=== PATIENT | female | born 1965 | race Caucasian/White ===

== ENCOUNTER 2025-03-21 09:43 | Emergency (ER) | payer BC, SELFPAY ==
--- OUTSIDE RECORDS SUMMARY | 2025-03-21 09:46 | XMS_ITS | Clinical Summary ---
Author Organization [place] Address [address] [facility] [place] [address] Care Team Providers Care Chip Mixer Name Role Phone Negar, [facility] Primary Care Provider Allergies No known active allergies Medications HYDROcodone-ventura taminophen (NORCO) 5-325 MG per tablet Take 1 tablet by mouth every 6 hours as needed for moderate to severe pain Active ferrous sulfate 325 (65 FE) MG tabletIndicatio ns:Anemia due to blood loss, acute Take 1 tablet (325 mg) by mouth daily (with breakfast) 30 tablet 2 4 Active COMPRESSION STOCKINGSIndica tions:S/P knee replacement, bilateral 1 each continuous 1 each 0 4 Active oxyCODONE (OXY-IR) 5 MG capsuleIndicati ons:S/P knee replacement, bilateral 2 tabs every 4 hours as needed for pain. 60 capsule 0 4 Active Active Problems Problem Noted Date Diagnosed Date Degenerative arthritis of knee 10/15/2013 Family History Medical History Relation Comments Cancer Father colon Cancer Maternal Grandmother colon C.A.D. 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 Not on file Not on file Not on rizwan e Last Filed Vital Signs Vital Sign Reading Time Taken Comments Blood Pressure 125/72 10/19/2013 7:24 AM CDT Pulse 83 10/16/2013 4:00 AM CDT Temperature 37.2 C (98.9 F) 10/19/2013 7:24 AM CDT Respiratory Rate 18 10/19/2013 7:24 AM CDT Oxygen Saturation 94% 10/19/2013 7:24 AM CDT Inhaled Oxygen Concentration - - Weight 96.8 kg (213 lb 4.8 oz) 10/15/2013 2:57 P M CDT Height 165.1 cm (5' 5) 10/15/2013 2:57 PM CDT Body Mass Index 35.49 10/15/2013 2:57 PM CDT Plan of Treatment Not on file Medical Devices Implanted Type Area Wood Window And Door Craftsman Device Identifier Shelf Expiration Date Model / Serial / Lot Imp Insert Tibial Howm Tri 3x09mm 5530-G-309 Implanted:Qty: 1 on 10/15/2013 by Israel Toledo MD at [facility] Right: Knee [employer] 08/27/2018 5530-G-309 / / [id number] Imp Comp Patella Strk Triathln Tri Bd W/Pa 32mm 5554-L-320 Implanted:Qty: 1 on 10/15/2013 by Israel Toledo MD at [facility] Right: Knee [employer] 08/27/2018 5554-L-320 / / [id number] Tibial Component Implanted:Qty: 1 on 10/15/2013 by Israel Toledo MD at [facility] Right: Knee [employer] 07/27/2018 5536-B-300 / / [id number] Imp Comp Fem Strk Triathln Cr Bd W/Pa Rt 4 [id number]-F-[id number] Implanted:Qty: 1 on 10/15/2013 by Israel Toledo MD at [facility] Right: Knee [employer] 04/28/2018 5517-F-402 / / [id number] Imp Insert Tibial Howm Tri 3x09mm 5530-G-309 Implanted:Qty: 1 on 10/15/2013 by Israel Toledo MD at [facility] Left: Knee [employer] 01/27/2018 5530-G-309 / / [id number] Imp Comp Patella Strk Triathln Tri Bd W/Pa 32mm 5554-L-320 Implanted:Qty: 1 on 10/15/2013 by Israel Toledo MD at [facility] Left: Knee [employer] 08/27/2018 5554-L-320 / / [id number] Tibial Component Implanted:Qty: 1 on 10/15/2013 by Israel Toledo MD at [facility] Left: Knee [employer] 06/29/2018 5536-B-300 / / [id number] Imp Comp Fem Strk Triathln Cr Bd W/Pa Lt 4 [id number]-F-[id number] Implanted:Qty: 1 on 10/15/2013 by Israel Toledo MD at [facility] Left: Knee [employer] 07/27/2018 5517-F-401 / / [id number] Insurance [facility] Advance Directives For more information, please contact: [phone] Documents on File Type Date Recorded Patient Scrap Carrier Expl anation Advance Directives and Living Will 10/23/2013 LIVING WILL 08-23-19 12 * Full Code (Latest Code Status on File) Date Activated Date Inactivated Comments 10/15/2013 9:22 PM 10/19/2013 2:17 PM Care Teams Chip Mixer Relationship Specialty Start Date End Date [facility], [place] [id number] PCP - General 09/13/13
--- OUTSIDE RECORDS SUMMARY | 2025-03-21 09:46 | XMS_ITS | Clinical Summary ---
Author Organization [facility] Address [address] [place] [address] Care Team Providers Care Blood And Plasma Laboratory Assistant Name Role Phone Anay Chatterjee MD Primary Care Provider [phone] Source Comments You are receiving this document as you are listed as the primary care provider,follow-up provider, or the patient has been referred to you for consultation.This is in compliance with the Medicare andMedicaid EHR Incentive Program,which states Providers who transition their patient to another setting of careor provider of care or refers their patient to another provider of care shouldprovide summary care record for each transition of care or referral. [employer] Allergies No known active allergies Medications aspirin EC 81 MG enteric coated tablet Take 1 Tablet (81 mg) by mouth daily. Active Pseudoephedrine- DM-GG (ROBITUSSIN CF OR) Active Active Problems Problem Noted Date Diagnosed Date Primary osteoarthritis of fi rst carpometacarpal joint of left hand 02/10/2023 Social History Tobacco Use Types Packs/Day Years Used Date Smoking Tobacco: Former Cigarettes Tobacco Cessation:Counseling Given: Not Answered Comments Unknown Sex and Gender Information Value Date Recorded Sex Assigned at Not on file Legal Sex Female 8:49 AM CDT Gender Identity Not on file Sexual Orientation Not on file Last Filed Vital Signs Vital Sign Reading Time Taken Comments Blood Pressure - - Pulse - - Temperature - - Respiratory Rate - - Oxygen Saturation - - Inhaled Oxygen Concentration - - Weight 79.4 kg (175 lb) 02/10/2023 8:23 AM CDT Height 165.1 cm (5' 5) 02/10/2023 8:23 AM CDT Body Mass Index 29.12 02/10/2023 8:23 AM CDT Plan of Treatment Health Maintenance Due Date Last Done Comments Cervical Cancer Screening Due 1965 Colon Cancer Screening Plan Due 1963 Hep C Screening (Preventive Services) 1963 HIV Screening (Preventive Services) 1979 Adult Preventive Visit 1981 Cholesterol 2008 Zoster/Shingles Vaccine (1 of 2) 2013 Mammogram 09/29/2023 09/28/2022, 06/04/2020 COVID-19 Vaccine ( season) 2025 05/10/2022, 05/07/2021, 09/16/2020, Additional history exists Influenza Vaccine (#1) 2025 , 02/14/2021, 04/03/2020, Additional history exists DTaP/Tdap/Td Vaccine (3 - Tdap) 02/26/2025 02/26/2015, 10/12/2004 RSV Vaccine (1 - 1-dose 75+ series) 2038 Pneumococcal Vaccine 50+ Yrs Completed 09/28/2022 HepA Vaccine Aged Out No longer eligi ble based on patient's age to complete this topic HepB Vaccine Aged Out No longer eligi ble based on patient's age to complete this topic Hib Vaccine Aged Out No longer eligi ble based on patient's age to complete this topic IPV (Polio) Vaccine Aged Out No longe r eligible based on patient's age to complete this topic MCV4 Vaccine Aged Out No longer eligi ble based on patient's age to complete this topic Meningococcal B Vaccine Aged Out No l onger eligible based on patient's age to complete this topic Insurance [address] [place] [id number] [facility] [place] [id number] Care Teams Blood And Plasma Laboratory Assistant Relationship Specialty Start Date End Date Anay Chatterjee MD [address] [place] [address] PCP - General Family Practice 01/19/23
--- OUTSIDE RECORDS SUMMARY | 2025-03-21 09:46 | XMS_ITS | Encounter Summary ---
Author Organization [place] Address [address] [facility] [place] [address] Care Team Providers Care Dance Instructor Name Role Phone [facility] Primary Care Provider Encounter Details Date Type Department Care Team (Late st Contact Info) Description 08/09/2013 Orders Only [facility] [address] [place] [phone] Israel Toledo MD [facility] [address] [place] [phone] Preoperative examination, unspecified (Primary Dx) Social History Tobacco Use Types Packs/Day Years Used Date Smoking Tobacco: Never Assessed Comments No Sex and Gender Information Value Date Recorded Sex Assigned at Not on file Legal Sex Female 10:01 AM CDT Gender Identity Not on file Sexual Orientation Not on file documented as of this encounter Plan of Treatment Not on file documented as of this encounter Visit Diagnoses Diagnosis Preoperative examination, unspecified- Primary documented in this encounter Care Teams Dance Instructor Relationship Specialty Start Date End Date [facility], [facility] [address] [place] [address] PCP - General 09/13/13 documented as of this encounter
--- OUTSIDE RECORDS SUMMARY | 2025-03-21 09:46 | XMS_ITS | Encounter Summary ---
Author Organization [place] Address [address] [facility] [place] [address] Care Team Providers Care Health Inspector Food Name Role Phone [facility] Primary Care Provider Encounter Details Date Type Department Care Team (Late st Contact Info) Description 09/17/2013 Orders Only [facility] [address] [place] [phone] Israel Toledo MD [facility] [address] [place] [phone] Preoperative examination, unspecified (Primary Dx) Social History Tobacco Use Types Packs/Day Years Used Date Smoking Tobacco: Every Day Cigarettes Smokeless Tobacco: Never Alcohol Use Standard Drinks/Week Comments Yes 0 [...] Primary documented in this encounter Care Teams Health Inspector Food Relationship Specialty Start Date End Date [facility], [address] [address] PCP - General 09/13/13 documented as of this encounter
--- OUTSIDE RECORDS SUMMARY | 2025-03-21 09:46 | XMS_ITS | Clinical Summary ---
Author Organization [facility] Address [address] [place] [address] Care Team Providers Care Diamond Powder Mixer Name Role Phone Anay Chatterjee MD Primary Care Provider [phone] Brigitte Duenas Unavailable [phone] Allergies No known active allergies Medications LORazepam (ATIVAN) 0.5 mg tabIndications:Grie f Take 1 Tablet (0.5 mg) by mouth at bedtime if needed for Anxiety. 4 Tablet 10/05/19 24 Active nitrofurantoin macrocrystaL 50 mg capsuleIndications: Recurrent UTI (urinary tract infection) Take 1 Capsule (50 mg) by mouth once daily. Start after completing 5 days course of Nitrofurantoin 30 Capsule 12/18/19 25 Active albuterol HFA (ProAir HFA) 90 mcg/actuation inhalerIndications: Mild intermittent asthma without complication (HC) Inhale 2 Puffs by mouth every 4 hours if needed for Shortness Of Breath or Wheezing. 18 g 3 01/16/20 25 Active aspirin enteric coated 81 mg tabletIndications:C oronary arteriosclerosis due to lipid rich plaque Take 1 Tablet (81 mg) by mouth once daily. Take 1 tablet daily 90 Tablet 3 01/16/20 25 Active rosuvastatin (CRESTOR) 20 mg tabletIndications:H yperlipidemia, unspecified hyperlipidemia type Take 1 Tablet (20 mg) by mouth at bedtime. 90 Tablet 3 01/16/20 25 Active triamcinolone 0.1 % lotionIndications:D ry skin dermatitis Apply topically to affected area(s) two times daily. 60 mL 01/16/20 25 Active lisinopriL (PRINIVIL; ZESTRIL) 10 mg tabletIndications:H TN (hypertension) Take 1 Tablet (10 mg) by mouth once daily. 90 Tablet 01/16/20 25 Active estradioL (ESTRACE) 0.01% (0.1 mg/g) vaginal creamIndications:Va ginal atrophy Insert 1 g into the vagina once weekly. 42.5 g 3 01/16/20 25 Active Additional Information Patient not taking.Reason: See Comment (Patient hasn't started yet.), Reported on 03/06/2025 cyanocobalamin (Vitamin B-12) 1,000 mcg tabletIndications:V itamin B12 deficiency Take 1 Tablet (1,000 mcg) by mouth once daily. 90 Tablet 3 01/17/20 Active Active Problems Problem Noted Date Diagnosed Date Prediabetes 01/16/2025 Vitamin B12 deficiency 01/16/2025 PSVT (paroxysmal supraventricular tachycardia) 0 10/05/2023 Paroxysmal SVT (supraventricular tachycardia) Left elbow pain 09/24/2021 Dizziness 09/24/2021 Insomnia due to psychological stress 09/24/2021 Seborrheic keratoses 09/24/2021 Arthralgia of both knees 09/24/2021 Coronary arteriosclerosis due to lipid rich plaq ue 09/24/2021 Menopause 06/04/2020 Night sweats 06/04/2020 Palpitations 06/04/2020 Mild intermittent asthma without complication H/O cold sores 06/04/2020 Seborrheic keratosis 06/04/2020 Insomnia, idiopathic 06/04/2020 Anxiety 03/30/2018 Oral herpes 07/05/2016 Routine adult health maintenance 04/02/2015 Overview (04/02/2015): Colonoscopy 03/2015 normal repeat in 10 years S/P knee replacement 03/05/2014 Tear of meniscus of left knee 05/02/2013 Overview (05/02/2013): Old injury, resulting in chronic knee pain Vitamin D deficiency 08/22/2012 Resolved Problems Problem Noted Date Diagnosed Date Resolved Date Knee pain - possible medial meniscus tear 10/27/2011 10/29/2011 Encounters Date Type Department Care Team Description 03/21/2025 Nurse Triage [facility] [address] [place] [address] Anay Chatterjee MD Abdominal Pain/problem 03/21/2025 Telephone [facility] [address] [place] [address] Anay Chatterjee MD Questions 03/21/2025 Telephone [facility] [address] [place] [address] Anay Chatterjee MD Questions 03/06/2025 8:30 AM CDT Office Visit [address] [address] Brigitte Duenas PA Consult (Recurrent UTI (urinary tract infection) /REFERRED BY: DR CHATTERJEE /) 03/06/2025 Travel 03/01/2025 Travel 02/23/2025 Travel 02/06/2025 3:45 PM CDT Orders Only [address] [address] <No scans attached> 02/06/2025 8:00 AM CDT Nurse/Clinic Staff Only [address] [address] Immunization/Injecti on; Blood Pressure 02/06/2025 Travel 02/06/[address] [address] [facility] Blood Pressure 02/05/2025 Telephone [facility] [address] [place] [address] Anay Chatterjee MD Appointment 02/05/2025 Travel 01/15/2025 9:00 AM CDT Ancillary Procedure [facility] [address] [place] [address] 01/15/2025 8:20 AM CDT Office Visit [facility] [address] [place] [address] Anay Chatterjee MD Physical (59 year old) 01/15/2025 Travel 01/10/2025 Travel 12/25/2024 Refill [facility] [address] [place] [address] Anay Chatterjee MD Refill Request; ASPIRIN 12/21/2024 Refill [facility] [address] [place] [address] Anay Chatterjee MD Refill Request; ROSUVASTATIN from Last 3 Months Immunizations Immunization Administration Dates Next Due COVID-19 vaccine (Moderna 100mcg/0.5mL) PF, MDV 05/07/2021 COVID-19 vaccine (Moderna 50 mcg/0.5mL) 12YO+ BIVALENT PF, MDV 05/10/2022 COVID-19 vaccine (MedAlliance NTech 30mcg/0.3mL) PF, MDV 09/16/2020,08/26/2020 INFLUENZA, IIV3 PF (AGE >= 6 MO) 03/05/2024 Influenza, IIV3 (Age >=3 years) 02/14/2021,07/14,03/10/2010 Influenza, IIV4 05/10/2022, 0,03/09/2019,02/26,02/20/2014 Influenza,CCIIV4 PRESERV FREE 03/16/2023 Pneumococcal Conj 20-valent (Prevnar 20) 09/28/2022 RSV, Recombinant ADJ Reconst ituted (Arexvy 120MCG/0.5mL) 02/06/2025 Td, Preservative Free (age >= 7 Years) 5 Tdap 10/12/2004 Family History Medical History Relation Name Comments Cancer-colon Brother non cancerous p olyps, 54 yr Cancer-colon Father diagnosed age 8 1 Cancer-colon Maternal Grandmother Good Health Mother Heart Disease Mother Triple Bypass in 70s Cancer-breast No Family History Cancer-ovarian No Family History Relation Name Status Comments Brother Father Maternal Grandmother Mother Other (Age 51) lung cance r, previous spouse Social History Tobacco Use Types Packs/Day Years Used Date Smoking Tobacco: Former Cigarettes 0.3 10 0 08/08/2010 - 08/08/2020 Smokeless Tobacco: Never Tobacco Cessation:Counseling Given: Yes Alcohol Use Standard Drinks/Week Comments Yes 6 (1 standard drink = 0.6 oz pure alcohol) 2-3 glasses of wine, 2 nights per week PHQ-2 Answer Date Recorded PHQ-2 TOTAL SCORE 0 01/15/2025 Social Connections Answer Date Recorded Do you often feel lonely or isolated from those around you? 0 01/10/2025 Alcohol Use Answer Date Recorded How often do you have a drink containing alcohol ? 3 03/06/2025 How many drinks containing a lcohol do you have on a typical day when you are drinking? 0 03/06/2025 How often do you have five or more drinks on one occasion? 0 03/06/2025 Financial Resource Strain Answer Date R ecorded Difficulty of Paying Living Expenses 3 01/10/2025 Difficulty of Paying Living Expenses Not on file 01/10/2025 Food Insecurity Answer Date Recorded Do you worry your food will run out before you are able to buy more? 1 01/10/2025 Transportation Needs Answer Date Record ed Does lack of transportation keep you from medica l appointments? 1 01/10/2025 Does lack of transportation keep you from work, meetings or getting things that you need? 1 01/10/2025 Housing Stability Answer Date Recorded What is your housing situation today? 1 01/10/2025 Utilities Answer Date Recorded Do you have trouble paying f or utilities (for example, heat, electricity, water, phone)? 1 01/10/2025 Comments No Sex and Gender Information Value Date Recorded Sex Assigned at Not on file Legal Sex Female 5:26 AM BRIDGE EXPERT Gender Identity Not on file Sexual Orientation Not on file Occupation Industry Job Start Date Job End Date Not on file Not on file Not on file Not on file Obstetrics History Para Term AB IAB SAB Ectopic Multiple Livin g Live Births 2 2 Date Outcome GA Total Labor Labor/2nd/3rd Weight Sex Type Anes PTL Gloria A1 A5 Name Clin Last Filed Vital Signs Vital Sign Reading Time Taken Comments Blood Pressure 112/68 03/06/2025 8:16 AM CDT Pulse 84 03/06/2025 8:16 AM CDT Temperature 36.6 C (97.9 F) 12/17/2024 8:16 AM CDT Respiratory Rate - - Oxygen Saturation 98% 01/15/2025 8:25 AM CDT Inhaled Oxygen Concentration - - Weight 93.6 kg (206 lb 4.8 oz) 03/06/2025 8:16 A M CDT Height 164 cm (5' 4.57) 01/15/2025 8:25 AM CDT Body Mass Index 34.79 01/15/2025 8:25 AM CDT Plan of Treatment Upcoming Encounters Date Type Department Care Team (Late st Contact Info) Description 04/11/2025 11:20 AM BRIDGE EXPERT Office Visit [facility] [address] [place] [phone] Ag [employer] [address] [place] [address] 09/04/2025 8:00 AM CDT Office Visit [facility] [address] [place] [address] Brigitte Duenas PA [address] [place] [address] Health Maintenance Due Date Last Done Comments Zoster (shingles) series for age 50+ (1 of 2) 2013 COVID-19 vaccine series ( season) 2025 03/16/2023, 05/10/2022, 05/07/2021, Additional history exists Influenza Vaccine (#1) 2025 4, 03/16/2023, 05/10/2022, Additional history exists Tetanus booster 02/26/2025 02/26/2015, 10/12/2004 Pap test for age 21-65 06/04/2025 1, 06/04/2020, 09/22/2016, Additional history exists BMI (ht and wt on same day) for age 18+ 01/15/2026 01/15/2025, 10/05/2023, 09/28/2022, Additional history exists Depression screening for age 12+ 01/15/2026 01/15/2025, 10/05/2023, 09/28/2022, Additional history exists Mammogram for age 45-75 01/15/2026 01/16/20 25, 10/19/2023, 09/28/2022, Additional history exists Colonoscopy through age 75 08/05/202908/05, 08/06/2019, 04/02/2015, Additional history exists Lipids for age 45-75 01/15/2030 01/15/2025, 10/05/2023, 09/28/2022, Additional history exists Hepatitis C screening for age 18-79 Completed 02/20/2014 HIV for age 15-65 Completed 09/28/2022 Pneumococcal series for age 50+ Completed 09/28/2022 RSV vaccine for adults or Completed 02/06/2025 Hepatitis B series for 19+ Aged Out N o longer eligible based on patient's age to complete this topic Procedures Procedure Name Priority Date/Time Associated Diagnosis Comments BASIC METABOLIC PANEL Routine 02/06/2025 3:30 PM CDT HTN (hypertension) VITAMIN B12 Routine 01/15/2025 9:30 AM CDT Paresthesia of bilateral legs CBC W PLT NO DIFF Routine 01/15/2025 9:3 0 AM CDT Paresthesia of bilateral legs PHOSPHORUS Routine 01/15/2025 9:30 AM CDT Paresthesia of bilateral legs MAGNESIUM Routine 01/15/2025 9:30 AM CDT Paresthesia of bilateral legs FOLIC ACID Routine 01/15/2025 9:30 AM CDT Paresthesia of bilateral legs TSH Routine 01/15/2025 9:30 AM CDT Paresthesia of bilateral legs LDL CHOLESTEROL,DIRECT Routine 01/15/2025 9:30 AM CDT Hyperlipidemia, unspecified hyperlipidemia type COMP METABOLIC PANEL Routine 01/15/2025 9:30 AM CDT Hyperlipidemia, unspecified hyperlipidemia type HEMOGLOBIN A1C Routine 01/15/2025 9:30 AM CDT Diabetes mellitus screening XR MAMMO BETTY BILAT SCREEN Routine 01/15/2025 9:18 AM CDT Visit for screening mammogram LC HIV-1/O/2, 4TH GENERATION Routine 09/28/2022 11:20 AM CDT Screening for HIV (human immunodeficiency virus) TILE CLASSIFIER THIN PREP PAP SCREEN IMAGED Routine 06/04/2020 8:12 AM BRIDGE EXPERT Screening for malignant neoplasm of cervix COLONOSCOPY DIAGNOSTIC Routine 08/06/2019 10:57 AM CDT Chronic diarrhea ANTI HCV Routine 02/20/2014 9:30 AM CDT Need for hepatitis C screening test from Last 3 Months or Most Recently Relevant to Health Maintenance Results * BASIC METABOLIC PANEL (02/06/2025 3:30 PM CDT) SODIUM 140 135 - 146 mmol/L 02/07/2025 5:10 AM CDT [facility] POTASSIUM 4.1 3.5 - 5.3 mmol/L 02/07/2025 5:10 AM CDT [facility] CARBON DIOXIDE 26 20 - 32 mmol/L 02/07/2025 5:10 AM CDT [facility] GLUCOSE 87 65 - 99 mg/dL 02/07/2025 5:10 AM CDT [facility] Comment: Fasting reference interval CALCIUM 9.3 8.6 - 10.4 mg/dL 02/07/2025 5:10 AM CDT [facility] CREATININE 0.76 0.50 - 1.05 mg/dL 02/07/2025 5:10 AM CDT [facility] BUN/CREATININE RATIO SEE NOTE: 6 - 22 (calc) 02/07/2025 5:10 AM CDT [facility] Comment: Not Reported: BUN and Creatinine are within reference range. EGFR 89 > OR = 60 mL/min/1. 73m2 02/07/2025 5:10 AM CDT [facility] UREA NITROGEN (BUN) 18 7 - 25 mg/dL 02/07/2025 5:10 AM CDT [facility] ELECTROLYTE BALANCE 8 7 - 17 mmol/L (calc) 02/07/2025 5:10 AM CDT [facility] CHLORIDE 106 98 - 110 mmol/L 02/07/2025 5:10 AM CDT [facility] Blood BLOOD SPECIMEN / Unknown [facility] / Unknown 02/06/2025 3:30 PM CDT 02/06/2025 3:30 PM CDT Anay Chatterjee MD CHEMISTRY Final Resul t Performing Organization Address [facility] Co de Phone Number [facility] [address] [address], * (ABNORMAL) HEMOGLOBIN A1C (01/15/2025 9:30 AM CDT) HEMOGLOBIN A1C 5.9(H) <5.7 % 01/16/2025 4:54 AM CDT [facility] Comment: For someone without known diabetes, a hemoglobin A1c value between 5.7% and 6.4% is consistent with prediabetes and should be confirmed with a follow-up test. For someone with known diabetes, a value <7% indicates that their diabetes is well controlled. A1c targets should be individualized based on duration of diabetes, age, comorbid conditions, and other considerations. This assay result is consistent with an increased risk of diabetes. Currently, no consensus exists regarding use of hemoglobin A1c for diagnosis of diabetes for children. Blood BLOOD SPECIMEN / Unknown [facility] / Unknown 01/15/2025 9:30 AM CDT 01/15/2025 9:31 AM CDT Anay Chatterjee MD CHEMISTRY Final Resul t Performing Organization Address [facility] Co de Phone Number [facility] [address] [address], * TSH (01/15/2025 9:30 AM CDT) TSH 0.99 0.40 - 4.50 mIU/L 01/16/2025 6:18 AM CDT [facility] Blood BLOOD SPECIMEN / Unknown [facility] / Unknown 01/15/2025 9:30 AM CDT 01/15/2025 9:30 AM CDT us Anay Chatterjee MD CHEMISTRY Final Resul t [facility] [address] [place] [address], [place] [phone] * CBC W PLT NO DIFF (01/15/2025 9:30 AM CDT) Pathologist [facility] WHITE BLOOD CELL COUNT 5.8 3.8 - 10.8 Thousand/u L 01/16/2025 2:51 AM CDT [facility] RED BLOOD CELL COUNT 4.40 3.80 - 5.10 Million/uL 01/16/2025 2:51 AM CDT [facility] HEMOGLOBIN 13.7 11.7 - 15.5 g/dL 01/16/2025 2:51 AM CDT [facility] HEMATOCRIT 42.5 35.0 - 45.0 % 01/16/2025 2:51 AM CDT [facility] MCV 96.6 80.0 - 100.0 fL 01/16/2025 2:51 AM CDT [facility] MCH 31.1 27.0 - 33.0 pg 01/16/2025 2:51 AM CDT [facility] MCHC 32.2 32.0 - 36.0 g/dL 01/16/2025 2:51 AM CDT [facility] Comment: For adults, a slight decrease in the calculated MCHC value (in the range of 30 to 32 g/dL) is most likely not clinically significant; however, it should be interpreted with caution in correlation with other red cell parameters and the patient's clinical condition. RDW 11.9 11.0 - 15.0 % 01/16/2025 2:51 AM CDT [facility] PLATELET COUNT 257 140 - 400 Thousand/u L 01/16/2025 2:51 AM CDT [facility] MPV 10.3 7.5 - 12.5 fL 01/16/2025 2:51 AM CDT [facility] Blood BLOOD SPECIMEN / Unknown [facility] / Unknown 01/15/2025 9:30 AM CDT 01/15/2025 9:31 AM CDT Anay Chatterjee MD HEMATOLOGY Final Resul t Performing Organization Address [facility]/ZIP Co de Phone Number [facility] [address] [address], [place] [phone] * PHOSPHATE (01/15/2025 9:30 AM CDT) PHOSPHATE ( PHOSPHORUS) 3.8 2.5 - 4.5 mg/dL 01/16/2025 5:32 AM CDT [facility] Blood BLOOD SPECIMEN / Unknown [facility] / Unknown 01/15/2025 9:30 AM CDT 01/15/2025 9:31 AM CDT Anay Chatterjee MD CHEMISTRY Final Resul t Performing Organization Address [facility] Co de Phone Number [facility] [address] [address], [place] [phone] * MAGNESIUM (01/15/2025 9:30 AM CDT) MAGNESIUM 2.3 1.5 - 2.5 mg/dL 01/16/2025 5:32 AM CDT [facility] Blood BLOOD SPECIMEN / Unknown [facility] / Unknown 01/15/2025 9:30 AM CDT 01/15/2025 9:31 AM CDT Anay Chatterjee MD CHEMISTRY Final Resul t Performing Organization Address [facility] Co de Phone Number [facility] [address] [address], [place] [phone] * LDL CHOLESTEROL,DIRECT (01/15/2025 9:30 AM CDT) DIRECT LDL 66 <100 mg/dL 01/17/2025 3:14 AM CDT [facility] Comment: Desirable range <100 mg/dL for primary prevention; <70 mg/dL for patients with CHD or diabetic patients with > or = 2 CHD risk factors. Blood BLOOD SPECIMEN / Unknown [facility] / Unknown 01/15/2025 9:30 AM CDT 01/15/2025 9:31 AM CDT Anay Chatterjee MD CHEMISTRY Final Resul t Performing Organization Address [facility] [[email or web address]] de Phone Number [facility] [address] [address], * FOLIC ACID (01/15/2025 9:30 AM CDT) Pathologist [facility] FOLATE, SERUM 14.0 ng/mL 01/16/2025 6:18 AM CDT [facility] Comment: Reference Range Low: <3.4 Borderline: 3.4-5.4 Normal: >5.4 Blood BLOOD SPECIMEN / Unknown [facility] / Unknown 01/15/2025 9:30 AM CDT 01/15/2025 9:30 AM CDT Anay Chatterjee MD CHEMISTRY Final Resul t Performing Organization Address [facility] [[email or web address]] de Phone Number [facility] [address] [address], * VITAMIN B12 (01/15/2025 9:30 AM CDT) Pathologist [facility] VITAMIN B12 258 200 - 1100 pg/mL 01/16/2025 6:18 AM CDT [facility] Comment: Please Note: Although the reference range for vitamin B12 is 200-1100 pg/mL, it has been reported that between 5 and 10% of patients with values between 200 and 400 pg/mL may experience neuropsychiatric and hematologic abnormalities due to occult B12 deficiency; less than 1% of patients with values above 400 pg/mL will have symptoms. Blood BLOOD SPECIMEN / Unknown [facility] / Unknown 01/15/2025 9:30 AM CDT 01/15/2025 9:30 AM CDT us Anay Chatterjee MD CHEMISTRY Final Resul t [facility] [address] [place] [address], * COMP METABOLIC PANEL (01/15/2025 9:30 AM CDT) SODIUM 140 135 - 146 mmol/L 01/16/2025 5:32 AM CDT [facility] POTASSIUM 4.5 3.5 - 5.3 mmol/L 01/16/2025 5:32 AM CDT [facility] CHLORIDE 104 98 - 110 mmol/L 01/16/2025 5:32 AM CDT [facility] CARBON DIOXIDE 28 20 - 32 mmol/L 01/16/2025 5:32 AM CDT [facility] GLUCOSE 95 65 - 99 mg/dL 01/16/2025 5:32 AM CDT [facility] Comment: Fasting reference interval CALCIUM 9.6 8.6 - 10.4 mg/dL 01/16/2025 5:32 AM CDT [facility] CREATININE 0.75 0.50 - 1.05 mg/dL 01/16/2025 5:32 AM CDT [facility] BUN/CREATININE RATIO SEE NOTE: 6 - 22 (calc) 01/16/2025 5:32 AM CDT [facility] Comment: Not Reported: BUN and Creatinine are within reference range. EGFR 91 > OR = 60 mL/min/1. 73m2 01/16/2025 5:32 AM CDT [facility] ALBUMIN 4.9 3.6 - 5.1 g/dL 01/16/2025 5:32 AM CDT [facility] PROTEIN, TOTAL 7.0 6.1 - 8.1 g/dL 01/16/2025 5:32 AM CDT [facility] BILIRUBIN, TOTAL 0.8 0.2 - 1.2 mg/dL 01/16/2025 5:32 AM CDT [facility] ALKALINE PHOSPHATASE 81 37 - 153 U/L 01/16/2025 5:32 AM CDT [facility] ALT 26 6 - 29 U/L 01/16/2025 5:32 AM CDT [facility] AST 24 10 - 35 U/L 01/16/2025 5:32 AM CDT [facility] UREA NITROGEN (BUN) 12 7 - 25 mg/dL 01/16/2025 5:32 AM CDT [facility] GLOBULIN 2.1 1.9 - 3.7 g/dL (calc) 01/16/2025 5:32 AM CDT [facility] ALBUMIN/GLOBULI N RATIO 2.3 1.0 - 2.5 (calc) 01/16/2025 5:32 AM CDT [facility] Blood BLOOD SPECIMEN / Unknown [facility] / Unknown 01/15/2025 9:30 AM CDT 01/15/2025 9:31 AM CDT us Anay Chatterjee MD CHEMISTRY Final Resul t [facility] [address] [id number] [place] [address], * XR MAMMO BETTY BILAT SCREEN (01/15/2025 9:18 AM CDT) Anatomical Region Laterality Modality BREASTS, Breast Left, Breast Right Bilateral Mammography Impressions 01/16/2025 7:08 PM CDT There is no radiographic evidence for malignancy. Recommend annual mammograms. MAMMOGRAM ASSESSMENT: ACR 1 Negative PATIENTS: You will also receive a letter with your examination results in an easy to read format. If you have questions about your results, please contact your referring provider. Narrative 01/16/2025 7:08 PM CDT For Patients: As a result of the Century Cures Act, medical imaging exams and procedure reports are released immediately into your electronic medical record. You may view this report before your referring provider. If you have questions, please contact your health care provider. XR MAMMO BETTY BILAT SCREEN [[id number]] CLINICAL HISTORY: This is an asymptomatic 59 y.o. patient. INDICATION FOR EXAM: Mammogram Screening. TECHNIQUE: CC and MLO views were obtained. This study was evaluated with the assistance of Computer-Aided Detection. Breast Tomosynthesis was used in interpretation. COMPARISON FILM: Yes 10/19/23 [facility] 09/28/22 [facility] FINDINGS: There are scattered areas of fibroglandular density. There are no dominant masses, suspicious micro calcifications or areas of architectural distortion. us Anay Chatterjee MD MAMMO Final Resul t * LC HIV-1/O/2, 4TH GENERATION (09/28/2022 11:20 AM CDT) HIV Scr 4th Gen Non Reactive Non Reactive 09/30/2022 2:08 PM CDT [facility] ([facility]) Comment: HIV Negative HIV-1/HIV-2 antibodies and HIV-1 p24 antigen were NOT detected. There is no laboratory evidence of HIV infection. Blood BLOOD SPECIMEN / Unknown Venipuncture / Unknown 09/28/2022 11:20 AM CDT 09/28/2022 11:21 AM CDT Narrative [facility] ([facility]) - 09/30/2022 2:08 PM CDT Performed at: [address] [place] [id number] Machine Gun Mechanic: Bhupinder Alejandro MD, Phone: [phone] Anay Chatterjee MD LABORATORY Final Resul t [facility] ([facility]) [address] [place] [address], [place] * TILE CLASSIFIER THIN PREP PAP SCREEN IMAGED [[id number]] (06/04/2020 8:12 AM BRIDGE EXPERT) Case Report Gynecologic Cytology Report Case: [id number] Authorizing Provider: Anay Chatterjee MD Collected: 06/04/2020 0812 Ordering Location: [facility] Received: 06/04/2020 0859 Clinic First Screen: Gale Ledezma Specimen: TILE CLASSIFIER ThinPrep Vial Screening, Cervical 06/11/2020 1:34 PM BRIDGE EXPERT [facility] LAB[facility]-C ENTRAL LABORATORY INTERPRETATION/ RESULT NEGATIVE FOR INTRAEPITHELIAL LESION OR MALIGNANCY (NIL) (none) 06/11/2020 1:34 PM BRIDGE EXPERT [facility] ENTRMS LABORATORY at 1334 BRIDGE EXPERT SPECIMEN ADEQUACY Satisfactory for evaluation Endocervical component present 06/11/2020 1:34 PM BRIDGE EXPERT [facility] HPV REQUEST HPV and PAP 06/11/2020 1:34 PM BRIDGE EXPERT [facility] Date of LMP postmenopausal 1:34 PM BRIDGE EXPERT [facility] Last Pap Date 09/22/16 06/11/2020 1:34 PM BRIDGE EXPERT [facility] Last Pap Result NIL 1:34 PM BRIDGE EXPERT [facility] Abnormal Pap or [place] Bx in last 5 years No 06/11/2020 1:34 PM BRIDGE EXPERT [facility] Menstrual Status Postmenopausal 06/11/2020 1:34 PM BRIDGE EXPERT [facility] [place] Bx Done Today No 06/11/2020 1:34 PM BRIDGE EXPERT [facility] Additional Information None given 06/11/2020 1:34 PM BRIDGE EXPERT [facility] Comment: Cytology is screened at [facility] - [address] [facility] [address], [place] [address] and [facility] - [address] [place] [address] and [facility] - [address] [place] [address] Interpreted at [facility] - [address] [place] [address] Automated Review Successful 06/11/2020 1:34 PM BRIDGE EXPERT [facility] Comment:Specimen processed s uccessfully by automated bonding machine operator device, [employer] ANCILLARY TESTING TILE CLASSIFIER HPV Ordered, Please see separate report 06/11/2020 1:34 PM BRIDGE EXPERT [facility] Note The pap test is a screening technique, not a diagnostic procedure. It is used primarily to screen for squamous cancers and precursor lesions. Published studies have shown that it is subject to both false negative and false positive results. The pap test should not be used as the sole means to diagnose or exclude pre-malignant and malignant lesions. 06/11/2020 1:34 PM BRIDGE EXPERT [facility]AL [facility]AT[facility] Other (Cervical) Non-Blood / Unknown 06/04/2020 8:12 AM BRIDGE EXPERT 06/04/2020 8:59 AM BRIDGE EXPERT us Anay Chatterjee MD PATHOLOGY/CYTOLOGY Final Re sult Performing Organization Address City/[facility]/ZIP Co de Phone Number [facility] [address] [place] [address], * COLONOSCOPY DIAGNOSTIC (08/06/2019 10:57 AM CDT) us Israel Knowles MD GI PROCEDURE ORD Edited R esult - Final * ANTI HCV (02/20/2014 9:30 AM CDT) HEPATITIS C ANTIBODY Non-Reacti ve Non-Reacti ve 02/20/2014 4:53 PM CDT [facility] Blood specimen (specimen) BLOOD SPECIMEN / Unknown Venipuncture / Unknown 02/20/2014 9:30 AM CDT 02/20/2014 9:31 AM CDT Narrative [facility] - 02/20/2014 4:53 PM CDT Antibodies to HCV not detected; does not exclude the possibility of exposure to HCV. us Rani Griffiths NP SEND OUTS F inal Result Performing Organization Address City/[facility]/ZIP Co de Phone Number [facility] 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
[2025-03-21 09:47] VITALS: BP 167/95; PULSE 81; RESP 18; TEMP 36.4; O2SAT 98; BMI 32.4
--- NOTE | 2025-03-21 10:01 | ED.GENADULT ---
HPI - General Adult General Chief complaint: Abdominal Pain Stated complaint: Bloody stool Time Seen by Provider: 03/21/25 09:59 History of Present Illness HPI narrative: Patient presents to the emergency department complaining of abdominal cramping and blood in her stool. Patient started experiencing cramps last night and was experiencing diarrhea. Patient woke up in the middle of the night and continued to have these cramps then this morning when she was having a BM there was blood . Patient states later she passed some BM that was mostly mucus and blood. 59-year-old woman presenting to the emergency department in with concern of abdominal cramping, pretty severe pain suprapubic area as demonstrated. Began having some cramping around 7:00 p.m. last night after supper with subsequent diarrheal stool. 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 More cramping with some bloody mucus produced. Last most intense intense cramping was about 2 hours prior to presentation in the emergency department. No known hemorrhoids. No anticoagulants but does take an aspirin. No fever. No particular exposures to food or illness. She is concerned in part also is will be traveling tomorrow to [place]. Has had regular colonoscopies but does not believe that diverticulosis was ever mentioned. No recent antibiotics. Related Data Home Medications ?Medication ?Instructions ?Recorded ?Confirmed aspirin 81 mg tablet,delayed 81 mg PO DAILY 03/21/25 03/21/25 release cyanocobalamin (vitamin B-12) 1,000 mcg PO DAILY 03/21/25 03/21/25 1,000 mcg tablet estradiol 0.01% (0.1 mg/gram) 1 g vaginal 03/21/25 vaginal cream lisinopril 10 mg tablet 10 mg PO DAILY 03/21/25 03/21/25 rosuvastatin 20 mg tablet 20 mg PO QPM 03/21/25 03/21/25 Allergies Allergy/AdvReac Type Severity Reaction Status Date / Time No Known Drug Allergies Allergy Verified 03/21/25 09:52 Review of Systems Status of ROS: Reports: 6 or more systems reviewed and unremarkable except as noted in History and below [facility] Social History Smoking Status: Never smoker Do you use any of these nicotine containing products: None Second hand tobacco smoke exposure: No How often do you have a drink containing alcohol: never How often do you have six or more drinks on one occasion: Never AUDIT-C Alcohol total score: 0 Non-prescribed substance use: denies use Exam Narrative: Exam Narrative: Pleasant. NAD. Seated as if a little uncomfortable. Breathing easily. Lungs appear clear. Skin is warm and dry. No rashes apparent. Heart in regular rate and rhythm. Abdomen with present bowel sounds is soft and mildly uncomfortable to palpation in the suprapubic area. Without peritoneal signs Const: Vital Signs, click to edit/add: Vital Signs - 24 hr 03/21/25 09:47 Temperature 97.5 F L Pulse Rate [Right Pulse Oximeter] 81 Respiratory Rate 18 Blood Pressure [Ri ght Upper Arm] 167/95 H Pulse Oximetry 98 Oxygen Delivery Me thod Room Air Documenting provider has reviewed patient's vital signs: yes Course Vital Signs Vital signs: Initial Vital Signs Temperature 97.5 F L 03/21/25 09:47 Temperature Source Temporal Artery Scan 03/21/25 09:47 Pulse Rate 81 03/21/25 09:47 Pulse Rhythm Regular 03/21/25 09:47 Pulse Strength 3+ Normal 03/21/25 09:47 Respiratory Rate 18 03/21/25 09:47 Blood Pressure 167/95 H 03/21/25 09:47 Blood Pressure Mean 119 H 03/21/25 09:47 Blood Pressure Position Sitting 03/21/25 09:47 Pulse Oximetry 98 03/21/25 09:47 Oxygen Delivery Method Room Air 03/21/25 09:47 Vital Signs Temperature 97.5 F L 03/21/25 09:47 Pulse Rate 81 03/21/25 09:47 Respiratory Rate 18 03/21/25 09:47 Blood Pressure 167/95 H 03/21/25 09:47 Pulse Oximetry 98 03/21/25 09:47 Oxygen Delivery Method Room Air 03/21/25 09:47 Temperature 97.5 F L 03/21/25 09:47 Pulse Rate 81 03/21/25 09:47 Respiratory Rate 18 03/21/25 09:47 Blood Pressure 167/95 H 03/21/25 09:47 Pulse Oximetry 98 03/21/25 09:47 Oxygen Delivery Method Room Air 03/21/25 09:47 Medications Administered Medications: Discontinued Medications Generic Name Dose Route Start Last Admin Trade Name Freq PRN Reason Stop Dose Admin Sodium Chloride 1,000 mls @ 1,000 mls/hr 03/21/25 10:20 03/21/25 11:52 0.9 % Sodium Chloride 1000 Ml IV 03/21/25 11:19 Infused .Q1H ONE Infusion Medical Decision Making MDM Narrative Medical decision making narrative: I suspect colitis or enteritis; particularly the former. Possible hemorrhoidal bleeding but nothing like this prior. Diverticulitis remains in differential. Does not appear to have kind of pain might from expect bowel ischemia nor is she high risk for this. Will check standard labs. I would for this first-time occurrence do abdomen and pelvis CT imaging IV was placed. Received a L normal saline. Labs are reassuring. Normal white count. Non contrasted CT of abdomen pelvis independently reviewed by me does show some diverticulosis. I wonder if there are some inflammatory changes in the lower colon. Radiology over-read below INDICATION: Lower abdominal pain. Cramping. TECHNIQUE: CT abdomen and pelvis acquired without contrast. COMPARISON: None. FINDINGS: Lower chest: Lung bases are clear. No pleural or pericardial effusion. Coronary artery calcifications. Liver: Unremarkable. Spleen: Unremarkable. Pancreas: Unremarkable. Gallbladder and bile ducts: No calcified stones or biliary ductal dilatation. Kidneys: No urolithiasis or hydronephrosis. Bilateral unenhanced kidneys are otherwise unremarkable. Adrenal glands: Unremarkable. GI tract: Circumferential thickening of the distal descending and sigmoid colon with pericolonic stranding greatest adjacent to the sigmoid colon in the pelvis. Minimal diverticulosis is present in the sigmoid colon. No pneumatosis, free air, free fluid or drainable fluid collection. No obstruction. Normal appendix. Lymph nodes: No pathologic lymphadenopathy. Vascular structures: Atherosclerotic disease. No abdominal aortic aneurysm. Pelvic Organs: Unremarkable. Bones: No acute or suspicious osseous abnormality. Degenerative changes of the spine and pelvis. IMPRESSION: Colitis of the distal descending and sigmoid colon. No complicating features evident. Minimal sigmoid diverticulosis is present and findings may represent diverticulitis, however, other etiologies for colitis should also be considered. Dictated by Bob Zaragoza MD @ 03/21/2025 10:58:56 AM Discussed these findings of colitis with Amie and her . Symptoms have also settled somewhat. Possible diverticulitis but I think it would focus on colitis as more significant finding. Feels comfortable for departure from the emergency department See patient discharge plan for further discussion Focus on hydration. Over the next 2-3 days would go with a landcare officer diet. Start with diluted juices, soup broths, crackers, rice, toast and then advancing your diet. Take a copy of your images on this disc and report along with you on your trip in case things get worse. Can take up to 600 mg of ibuprofen or up to 850 mg of acetaminophen per dose; they can be combined. Alternative to the ibuprofen could take 375 mg of naproxen 2 times daily. Lab Data Lab results reviewed: Yes I reviewed the patient's lab results Labs: Lab Results 03/21/25 Range/Units 10:53 WBC 9.44 (4.50-11.00) K/uL RBC 4.31 (4.00-5.20) m/uL Hgb 13.4 (12.0-16.0) gm/dL Hct 40.7 (33.0-51.0) % MCV 94 (80-100) fL MCH 31 (26-34) pg MCHC 33 (32-36) gm/dL RDW Coeff of Conrad 11.8 (11.5-15.5) % Plt Count 215 (140-440) K/uL Neut % (Auto) 74.4 H (42.0-72.0) % Lymph % (Auto) 17.3 L (20-44) % [place] % (Auto) 6.6 (0.0-11.0) % Eos % (Auto) 0.7 (0.0-7.0) % Baso % (Auto) 0.3 (0.0-3.0) % Neut # (Auto) 7.00 (1.7-7.0) K/uL Lymph # (Auto) 1.60 (0.90-2.90) K/uL [place] # (Auto) 0.60 (0.00-0.90) K/UL Eos # (Auto) 0.07 (0.00-0.50) K/uL Baso # (Auto) 0.03 (0.00-0.30) K/uL Abs Immat Gran (auto) 0.07 (0.00-0.30) K/uL Imm/Tot Granulo (auto) 0.7 % Sodium 137 (135-149) mmol/L Potassium 4.2 (3.6-5.1) mmol/L Chloride 101 (96-114) mmol/L Carbon Dioxide 27 (20-32) mmol/L Anion Gap 9 (7-15) mEq/L BUN 16 (7-30) mg/dL Creatinine 0.7 (0.5-1.5) mg/dL Estimated Creat Clear 53.16 Estimated GFR 98 ml/min Glucose 112 (60-115) mg/dL Calcium 9.6 (8.4-10.6) mg/dL C-Reactive Protein < 0.5 L (0.5-1.0) mg/dL Discharge Plan Discharge Clinical Impression: Colitis Patient Disposition: Home w/ Parent or Adult Condition: Improved Additional Instructions: Focus on hydration. Over the next 2-3 days would go with a landcare officer diet. Start with diluted juices, soup broths, crackers, rice, toast and then advancing your diet. Take a copy of your images on this disc and report along with you on your trip in case things get worse. Can take up to 600 mg of ibuprofen or up to 850 mg of acetaminophen per dose; they can be combined. Alternative to the ibuprofen could take 375 mg of naproxen 2 times daily. Prescriptions: No Action cyanocobalamin (vitamin B-12) 1,000 mcg tablet 1,000 mcg PO DAILY aspirin 81 mg tablet,delayed release (DR/EC) 81 mg PO DAILY lisinopril 10 mg tablet 10 mg PO DAILY estradiol 0.01 % (0.1 mg/gram) cream 1 g vaginal rosuvastatin 20 mg tablet 20 mg PO QPM Follow Up/Referrals: Anay Chatterjee MD [Primary Care Provider, Family Practice] Stand Alone Forms: [employer] Info Instructions
--- NOTE | 2025-03-21 10:19 | CRLHL7_ITS ---
For Patients: As a result of the Century Cures Act, medical imaging exams and procedure reports are released immediately into your electronic medical record. You may view this report before your referring provider. If you have questions, please contact your health care provider. INDICATION: Lower abdominal pain. Cramping. TECHNIQUE: CT abdomen and pelvis acquired without contrast. COMPARISON: None. FINDINGS: Lower chest: Lung bases are clear. No pleural or pericardial effusion. Coronary artery calcifications. Liver: Unremarkable. Spleen: Unremarkable. Pancreas: Unremarkable. Gallbladder and bile ducts: No calcified stones or biliary ductal dilatation. Kidneys: No urolithiasis or hydronephrosis. Bilateral unenhanced kidneys are otherwise unremarkable. Adrenal glands: Unremarkable. GI tract: Circumferential thickening of the distal descending and sigmoid colon with pericolonic stranding greatest adjacent to the sigmoid colon in the pelvis. Minimal diverticulosis is present in the sigmoid colon. No pneumatosis, free air, free fluid or drainable fluid collection. No obstruction. Normal appendix. Lymph nodes: No pathologic lymphadenopathy. Vascular structures: Atherosclerotic disease. No abdominal aortic aneurysm. Pelvic Organs: Unremarkable. Bones: No acute or suspicious osseous abnormality. Degenerative changes of the spine and pelvis. IMPRESSION: Colitis of the distal descending and sigmoid colon. No complicating features evident. Minimal sigmoid diverticulosis is present and findings may represent diverticulitis, however, other etiologies for colitis should also be considered. Dictated by Bob Zaragoza MD @ 03/21/2025 10:58:56 AM Please note that all CT scans at this facility use dose modulation, iterative reconstruction, and/or weight-based dosing when appropriate to reduce radiation dose to as low as reasonably achievable. Dictated by: Bob Zaragoza MD @ 03/21/2025 10:59:13 (Electronically Signed)
[2025-03-21 11:08] LABS: Hematocrit* 40.7 % (33.0-51.0); Hemoglobin* 13.4 gm/dL (12.0-16.0); Immature Granulocytes Abs Auto 0.07 K/uL (0.00-0.30); Immature Granulocytes Pct Auto 0.7 %; Mean Corpuscular HGB Conc 33 gm/dL (32-36); Mean Corpuscular Hemoglobin 31 pg (26-34); Mean Corpuscular Volume 94 fL (80-100); RDW Coefficient of Variation % 11.8 % (11.5-15.5); Red Blood Count* 4.31 m/uL (4.00-5.20); White Blood Count* 9.44 K/uL (4.50-11.00)
[2025-03-21 11:11] LABS: Lymphocytes Absolute Auto 1.60 K/uL (0.90-2.90); Slide Review Reflex No
[2025-03-21 11:13] LABS: Chloride* 101 mmol/L (96-114); Sodium* 137 mmol/L (135-149)
[2025-03-21 11:14] LABS: Potassium* 4.2 mmol/L (3.6-5.1)
[2025-03-21 11:17] LABS: Anion Gap 9 mEq/L (7-15); Blood Urea Nitrogen* 16 mg/dL (7-30); Calcium* 9.6 mg/dL (8.4-10.6); Carbon Dioxide* 27 mmol/L (20-32); Creatinine* 0.7 mg/dL (0.5-1.5); Est. Creatinine Clearance* 53.16; Estimated Glomerular Filt Rate 98 ml/min; Glucose* 112 mg/dL (60-115)
== END 2025-03-21 12:24 | disposition home or self-care (01) ==
PROVIDERS: Emergency Provider Family Medicine; PCP Family Medicine
DX: K52.9 Noninfective gastroenteritis and colitis, unspecified (principal)
CPT/HCPCS: 36415; 74176; 80048; 85025; 86140; 99284; J7030